=== PATIENT | male | born 1985 | race Caucasian/White ===

== ENCOUNTER → 2017-05-28 | Outpatient (CLI) | payer OTHER ==
--- NOTE | 2017-05-28 14:43 | RAD ---
Abdomen, 2 views, 05/28/2017: History: Right-sided pain Gas is present in large and small bowel in a nonspecific pattern. There is a moderate amount of stool in the ascending colon. No free air seen in the abdomen. There is no evidence of organomegaly or abnormal abdominal calcification. IMPRESSION: No acute abdominal abnormality is detected.
== END | disposition home or self-care (01) ==
LOC: DXRADRC 09:35
PROVIDERS: ATTEND Physician Assistant
DX: R10.31 Right lower quadrant pain (principal)
CPT/HCPCS: 74020

== ENCOUNTER → 2017-05-28 | Outpatient (CLI) | payer OTHER ==
[~2017-05-28] MED LIST: IOHEXOL 240 MG/ML 50ML VIAL. ONE
[2017-05-28] MEDS: IOHEXOL 300 MG/ML 75 ML VIAL. IV ONE (11:57)
[2017-05-28] MEDS: IOHEXOL 240 MG/ML 50ML VIAL. PO ONE (11:58)
--- NOTE | 2017-05-28 12:33 | RAD ---
CT of the abdomen and pelvis with contrast, 05/28/2017: History: Right lower quadrant abdominal pain Multidetector CT imaging was performed following oral and IV administration of contrast. No hepatic, gallbladder, pancreatic, splenic or renal abnormality is detected. The bowel loops are not dilated. The appendix is visualized and shows no abnormality. No abdominal or pelvic adenopathy is seen. No free fluid or free air is evident in the abdomen or pelvis. The bowel loops are not dilated. Mild diffuse bladder wall thickening is probably related to its nondistended state. IMPRESSION: 1. Mild diffuse bladder wall thickening is probably due to lack of bladder distention. Cystitis cannot be excluded. Clinical correlation is suggested. 2. Otherwise no acute abdominal or pelvic abnormality is detected. PQRS Compliance Statement: One or more of the following individualized dose reduction techniques were utilized for this examination: 1. Automated exposure control 2. Adjustment of the mA and/or kV according to patient size 3. Use of iterative reconstruction technique
== END | disposition home or self-care (01) ==
LOC: CT 10:38
PROVIDERS: ATTEND Physician Assistant
DX: N30.90 Cystitis, unspecified without hematuria (principal)
CPT/HCPCS: 74177; Q9966; Q9967

== ENCOUNTER 2018-05-21 20:27 | Emergency (ER) | payer OTHER ==
[~2018-05-21] VITALS: Ht 180.3 cm; Wt 115.0 kg
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
[2018-05-21] MEDS ORDERED: IV RINGERS SOLUTION,LACTATED 1,000 ML IV SCH (20:38)
[2018-05-21] MEDS ORDERED: ONDANSETRON ODT 4 MG TAB.RAPDIS PO ONE (20:45)
[2018-05-21] MEDS ORDERED: MORPHINE SULFATE 10 MG/ML SYRINGE. SQ ONE ×2 (21:15→22:45)
[2018-05-21 21:27] LABS: BASO # 0.1 x10^3/uL (0.0-0.2); BASO % 1 % (0-3); EOS # 0.7 x10^3/uL (0.0-0.7); EOS % 5 % (0-3); HEMATOCRIT 48.4 % (39.0-53.0); HEMOGLOBIN 17.1 g/dL (13.0-17.5); LYMPH # 3.5 x10^3/uL (1.0-4.8); LYMPH % 28 % (24-48); MEAN CORPUSCULAR HEMOGLOBIN 31 pg (25-35); MEAN CORPUSCULAR HGB CONC 35 g/dL (31-37); MEAN CORPUSCULAR VOLUME 88 fL (79-100); MONO # 0.8 x10^3/uL (0.0-1.1); MONO % 6 % (0-9); NEUT # 7.4 x10^3uL (1.8-7.7); NEUT % 60 % (31-73); PLATELET COUNT 238 x10^3/uL (140-400); RED BLOOD COUNT 5.48 x10^6/uL (4.30-5.70); RED CELL DISTRIBUTION WIDTH 13.3 % (11.5-14.5); WHITE BLOOD COUNT 12.5 x10^3/uL (4.0-11.0)
--- NOTE | 2018-05-21 21:27 | RAD ---
CHEST AP ONLY, SHOULDER 2+V RIGHT Clinical History: [facility] Technique: AP view of the chest was obtained at 05/21/2018 8:52 PM. Comparison: None. Findings: The cardiomediastinal silhouette is normal. The pulmonary vasculature is normal. The lungs and pleural margins are clear. There is a fracture of the mid right clavicle with mild upward angulation and override. Impression: Acute traumatic fracture of the right clavicle. End impression 2 views right shoulder: AP and Y views the right shoulder obtained There is a fracture of the mid right clavicle. The glenohumeral relationship appears normal. The remaining visualized osseous structures appear normal. IMPRESSION: Fracture of the mid right clavicle. Electronically signed by: Praful Quintana III, MD (05/21/2018 9:24 PM) [id number]
--- NOTE | 2018-05-21 21:27 | RAD ---
CHEST AP ONLY, SHOULDER 2+V RIGHT Clinical History: [facility] Technique: AP view of the chest was obtained at 05/21/2018 8:52 PM. Comparison: None. Findings: The cardiomediastinal silhouette is normal. The pulmonary vasculature is normal. The lungs and pleural margins are clear. There is a fracture of the mid right clavicle with mild upward angulation and override. Impression: Acute traumatic fracture of the right clavicle. End impression 2 views right shoulder: AP and Y views the right shoulder obtained There is a fracture of the mid right clavicle. The glenohumeral relationship appears normal. The remaining visualized osseous structures appear normal. IMPRESSION: Fracture of the mid right clavicle. Electronically signed by: Praful Quintana III, MD (05/21/2018 9:24 PM) [id number]
[2018-05-21] MEDS ORDERED: IOHEXOL 300 MG/ML 75 ML VIAL. IV ONE (21:30)
[2018-05-21] MEDS ORDERED: CONTRAST GIVEN MC PRN (21:30)
[2018-05-21] MEDS ORDERED: MORPHINE SULFATE 5 MG/ML SYRINGE. ONE (21:31)
[2018-05-21 21:33] LABS: ALBUMIN 4.8 g/dL (3.4-5.0); CALCIUM 9.3 mg/dL (8.5-10.1); CREATININE 1.1 mg/dL (0.7-1.3); DIRECT BILIRUBIN 0.1 mg/dL (0.0-0.2); GFR 77.6; POTASSIUM 3.6 mmol/L (3.5-5.1); TOTAL BILIRUBIN 0.3 mg/dL (0.2-1.0); TOTAL PROTEIN 8.5 g/dL (6.4-8.2)
[2018-05-21] MEDS ORDERED: HYDR-79 PO (21:36)
--- NOTE | 2018-05-21 22:00 | EKG ---
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
[2018-05-21] MEDS ORDERED: MORPHINE SULFATE 5 MG/ML SYRINGE. IV ONE (22:15)
[2018-05-21] MEDS ORDERED: START PACK - traMADol 1 STARTPACK TABLET PO ONE ×2 (22:43→22:45)
[2018-05-21 22:45] VITALS: BP 130/77
--- NOTE | 2018-05-23 08:13 | RAD ---
Right clavicle, 2 views, 05/21/2018: HISTORY: Clavicular pain, injury There is a comminuted fracture of the mid clavicle. There is mild superior angulation at the fracture site. IMPRESSION: Acute right clavicular fracture. Electronically signed by: Haile Torres MD (05/23/2018 8:09 AM) [facility]
== END 2018-05-21 23:07 | disposition home or self-care (01) ==
LOC: ER 20:27
DX: S42.001A Fracture of unspecified part of right clavicle, initial encounter for closed fracture (principal); S20.419A Abrasion of unspecified back wall of thorax, initial encounter; R07.89 Other chest pain; V48.5XXA Car driver injured in noncollision transport accident in traffic accident, initial encounter; Y93.I9 Activity, other involving external motion; Y92.488 Other paved roadways as the place of occurrence of the external cause; Y99.8 Other external cause status
CPT/HCPCS: 29240; 36415; 71045; 71275; 73000; 73030; 80048; 80076; 83690; 83735; 85025; 85610; 85730; 93005; 96372; 96374; 96375; 99285; G0480; J2270; J3010; J7120; Q0162; Q9967

== ENCOUNTER → 2018-06-16 | Outpatient (CLI) | payer OTHER ==
[2018-05-21 22:45] VITALS: BP 130/77
[~2018-06-16] MED LIST changes: +HYDR-79 PO; -IOHEXOL 240 MG/ML 50ML VIAL. ONE
--- NOTE | 2018-06-16 16:17 | RAD ---
EXAM: 2 views right clavicle DATE: 06/16/2018 12:00 AM INDICATION: follow up clavicle fracture COMPARISON: 05/21/2018 FINDINGS/ IMPRESSION: 1. Comminuted right midshaft clavicle fracture is stable in alignment with mild periosteal reaction suggesting progressive healing. 2. Marginal evaluation of the right shoulder joint, intact. Electronically signed by: Noah Allen MD (06/16/2018 4:14 PM) [id number]
== END | disposition home or self-care (01) ==
LOC: DXRAD 15:19
PROVIDERS: ATTEND Orthopaedic Surgery Sports Medicine
DX: S42.021D Displaced fracture of shaft of right clavicle, subsequent encounter for fracture with routine healing (principal); X58.XXXD Exposure to other specified factors, subsequent encounter
CPT/HCPCS: 73000

== ENCOUNTER 2021-08-10 20:52 | Emergency (ER) | payer OTHER ==
[~2021-08-10] VITALS: Ht 180.3 cm; Wt 117.0 kg
[~2021-08-10 20:52] MED LIST changes: +HYDR-1179 PO; -HYDR-79 PO
[2021-08-10] MEDS ORDERED: DIPH,PERTUSS(ACELL),TET VAC/PF 0.5 ML SYRINGE. VAX IM ONE (22:30)
[2021-08-10] MEDS ORDERED: LIDOCAINE 1% Multi-Dose 20 ML VIAL. IJ ONE (22:30)
--- NOTE | 2021-08-10 22:31 | PHYS DOC ---
Past History Past Medical History: No Pertinent History (JUVENCIO CHOE APRN) Past Surgical History: No Surgical History (JUVENCIO CHOE APRN) Alcohol Use: Occasionally Drug Use: None (JUVENCIO CHOE APRN) General Adult EDM: Chief Complaint: LACERATION/AVULSION HPI: HPI: Patient is a 36-year-old male who presents to the emergency department for a laceration to his left third finger. Patient reports that he was trying to cut frozen hamburger meat when the knife slipped and cut his finger. Patient is unsure of his last tetanus. He denies any decreased range of motion or decreased sensation to his finger. (JUVENCIO CHOE APRN) Review of Systems: Review of Systems: 14 body systems of the review of systems have been reviewed. See HPI for pertinent positive and negative responses, otherwise all other systems are negative, nonpertinent or noncontributory (JUVENCIO CHOE APRN) Current Medications: Current Meds: Current Medications Medications (Trade) Dose Ordered Sig/Judith Start Time Stop Time Status Last Admin Dose Admin Diphtheria/ Pertussis/Tetanus Vacc (ADACEL TDap SYRINGE) 0.5 ml ONCE ONCE 08/10/21 22:30 08/10/21 22:31 Lidocaine HCl 20 ml 1X ONCE 08/10/21 22:30 08/10/21 22:31 (JUVENCIO CHOE APRN) Allergies: Allergies: Allergies Coded Allergies Type Severity Reaction Last Updated Verified No Known Drug Allergies 05/21/18 No (JUVENCIO CHOE APRN) Physical Exam: PE: Constitutional: Well developed, well nourished, no acute distress, non-toxic appearance. [] HENT: Normocephalic, atraumatic Eyes: PERRL, EOMI, conjunctiva normal, no discharge. [] Neck: Normal range of motion, no stridor Cardiovascular: Normal peripheral perfusion Lungs & Thorax: Normal work of breathing, no tachypnea Abdomen: Soft and flat Skin: Warm, dry, no erythema, no rash. [] Back: Normal range of motion Extremities: No tenderness, no cyanosis, no clubbing, ROM intact, no edema. Left third finger: 1.5 cm V-shaped laceration noted to the palmar aspect of patient's left third finger proximal to see PIP joint with active bleeding, no foreign bodies, no tendon involvement, range of motion intact, neuro intact Neurologic: Alert and oriented X 3, normal motor function, normal sensory function, no focal deficits noted. [] Psychologic: Affect normal, judgement normal, mood normal. [] (JUVENCIO CHOE APRN) EKG: EKG: [] (JUVENCIO CHOE APRN) Radiology/Procedures: Radiology/Procedures: [] (JUVENCIO CHOE APRN) Heart Score: C/O Chest Pain: N/A Risk Factors: Risk Factors: DM, Current or recent (<one month) smoker, HTN, HLP, family h istory of CAD, obesity. Risk Scores: Score 0 - 3: 2.5% MACE over next 6 weeks - Discharge Home Score 4 - 6: 20.3% MACE over next 6 weeks - Admit for Clinical Observation Score 7 - 10: 72.7% MACE over next 6 weeks - Early Invasive Strategies (JUVENCIO CHOE APRN) Course & Med Decision Making: Course & Med Decision Making Pertinent Labs and Imaging studies reviewed. (See chart for details) [] Patient presents with a laceration to his left third finger on the palmar aspect proximal to be PIP joint. Patient has full range of motion and was neurologically intact. I offered patient an x-ray but he states he does not think anything was broken. Wound was cleansed with saline wound wash. There was no tendon involvement and no foreign bodies visible. Laceration repaired with sutures. Patient tolerated procedure. Patient was neurologically intact. Post suture placement. Patient's tetanus was updated in the emergency department. Prior to discharge his laceration was placed in a nonadherent dressing. Patient given laceration care instructions. I discussed with patient all findings as well as the need to follow-up with PCP for further evaluation and treatment or return to the ER if any new or worsening symptoms. Strict return precautions were also discussed at length. Patient voiced understanding and agreement with the plan. Patient is hemodynamically stable at the time of disposition. (JUVENCIO CHOE APRN) Dragon Disclaimer: Dragon Disclaimer: This electronic medical record was generated, in whole or in part, using a voice recognition dictation system. (JUVENCIO CHOE APRN) Laceration Repair Lac Repair Time: 2200 Confirmed: Patient, procedure, site, and site correct Consent: Patient has given verbal consent Laceration location: Palmar aspect of left third finger proximal to the PIP joint Shape:v Depth: Subcutaneous tissue involvement Details: Clean with no foreign material Neurovascular, tendon exam: Intact Anesthesia: 1% lidocaine Preparation: Sterile field established Irrigation: Wound irrigated with saline wound wash Debridement: Skin closure: Simple interrupted sutures placed Size of suture: 5-0 Ethilon Number of sutures: 5 Complexity: Single layer Post procedure exam: Circulation, motor, sensory exam intact, bleeding controlled. Complications: None Patient tolerated: Well Performed by: self Total time: 30 minutes (JUVENCIO CHOE APRN) Attending Co-Sign The patient was seen and interviewed as well as examined at the bedside. The [facility] rt was reviewed. The case was discussed. Agree with the plan of care. (TYRON REESE DO) Departure Departure: Impression: Primary Impression: Laceration Disposition: HOME / SELF CARE / HOMELESS Condition: GOOD Referrals: HARISH NAVARRO (PCP) Patient Instructions: Laceration Care, Adult Additional Instructions: You were seen in the emergency department today for a laceration to your finger. This was cleansed and repaired with sutures in the emergency department. Please keep your laceration clean and dry. You can clean it with mild soap and warm water. Do not submerge your hand in any water for approximately 48 hours. You can go to your primary care provider's office or return to the emergency department in approximately 7 to 10 days to have your sutures removed. You can take Tylenol and/or ibuprofen for your pain at home. A dressing was placed in the emergency department, please keep a nonadherent dressing in place as well as the aluminum finger splint that was placed. Please monitor for any signs of infection such as redness, warmth, swelling or drainage. Follow-up with your primary care provider as needed. Return to the emergency department if you develop any of the signs of infection, increased pain, decreased mobility or decreased sensation to your finger. EMERGENCY DEPARTMENT GENERAL DISCHARGE INSTRUCTIONS Thank you for coming to [facility] (ED) today and trusting us with you care. We trust that you had a positivie experience in our Emergency Department. If you wish to speak to the department management, you may call the director at [phone]. YOUR FOLLOW UP INSTRUCTIONS ARE FOLLOWS: 1. Do you have a private Doctor? If you do not have a private doctor, please ask for a resource list of physicians or clinics that may be able to assist you with follow up care. 2. The Emergency Physician has interpreted your x-rays. The X-Ray specialist will also review them. If there is a change in the findings, you will be notified in 48 hours when at all possible. 3. A lab test or culture has been done, your results will be reviewed and you will be notified if you need a change in treatment. ADDITIONAL INSTRUCTIONS AND INFORMATION: 1. Your care today has been supervised by a physician who is specially trained in emergency care. Many problems require more than one evaluation for a complete diagnosis and treatment. We recommend that you schedule your follow up appointment as recommended to ensure complete treatment of you illness or injury. If you are unable to obtain follow up care and continue to have a problem, or if your condition worsens, we recommend that you return to the ED. 2. We are not able to safely determine your condition over the phone nor are we able to give sound medical advice over the phone. For these safety reasons, if you call for medical advice we will ask you to come to the ED for further evaluation. 3. If you have any questions regarding these discharge instructions please call the ED at [phone]. SAFETY INFORMATION: In the interest of safety, wellness, and injury prevention; we encourage you to wear your sealbelt, if you smoke; quite smoking, and we encourage family to use a protective helmet for bicycling and other sporting events that present an increased risk for head injury. IF YOUR SYMPTOMS WORSEN OR NEW SYMPTOMS DEVELOP, OR YOU HAVE CONCERNS ABOUT YOUR CONDITION; OR IF YOUR CONDITION WORSENS WHILE YOU ARE WAITING FOR YOUR FOLLOW UP APPOINTMENT; EITHER CONTACT YOUR PRIMARY CARE DOCTOR, THE PHYSICIAN WHOSE NAME AND NUMBER YOU WERE GIVEN, OR RETURN TO THE ED IMMEDIATELY. JUVENCIO CHOE APRN Aug 10, 2021 22:31 TYRON REESE DO Aug 11, 2021 19:43
[2021-08-10 23:25] VITALS: BP 144/95
== END 2021-08-10 23:25 | disposition home or self-care (01) ==
LOC: ER 20:52
DX: S61.213A Laceration without foreign body of left middle finger without damage to nail, initial encounter (principal); W26.0XXA Contact with knife, initial encounter; Y93.89 Activity, other specified; Y92.89 Other specified places as the place of occurrence of the external cause; Y99.8 Other external cause status
CPT/HCPCS: 12001; 90471; 90715; 99283